=== PATIENT | male | born 1945 | race Caucasian/White ===

== ENCOUNTER 2018-01-05 06:10 | Day surgery (SDC) | payer MEDICARE, OTHER ==
[2018-01-05] MEDS ORDERED: SODIUM CHLOR 0.9% 1000 ML INJ 1,000 ML IV SCH (06:32)
[2018-01-05] MEDS ORDERED: CHLORHEXIDINE GLUCONATE 2 % 1 PACK (2 CLOTHS) TOP SCH (06:45)
[2018-01-05] MEDS ORDERED: MUPIROCIN 2% OINT 1 APPLIC/GM SYR NASAL SCH (06:45)
[2018-01-05] MEDS ORDERED: POVIDONE IODINE 5% (ANTISEPSIS KIT) 4 APPLICATIONS EACH NARE SCH (06:45)
[2018-01-05] MEDS ORDERED: VANCOMYCIN INJ 1,000 MG in SODIUM CHLOR 0.9% 250 ML INJ 250 ML IV SCH (06:45)
[2018-01-05] MEDS ORDERED: PANT40TA3 PO (07:03)
[2018-01-05] MEDS ORDERED: CLOP75TA PO (07:03)
[2018-01-05] MEDS ORDERED: ATOR20TA15 PO (07:03)
[2018-01-05] MEDS ORDERED: ALLO300T2 PO (07:03)
[2018-01-05] MEDS ORDERED: MIDAZOLAM HCL 5 MG/ML VIAL (1 ML) ONE (07:21)
== END 2018-01-05 09:04 | disposition home or self-care (01) ==
LOC: HCAT 06:10 → HDIC 06:10 → HCAT 09:04
PROVIDERS: ATTEND Internal Medicine Interventional Cardiology
DX: I63.9 Cerebral infarction, unspecified (principal); I48.91 Unspecified atrial fibrillation
CPT/HCPCS: 33282; C1764; J2250; J3010